=== PATIENT | male | born 1945 | race Caucasian/White ===

== ENCOUNTER 2022-06-01 11:51 | Inpatient (IN) ==
[2022-06-01] MEDS ORDERED: Ondansetron 4 MG/2 ML VIAL IVP PRN (15:02)
[2022-06-01] MEDS ORDERED: Mag Hydrox/Al Hydrox/Simeth 30 ML UDC PO PRN (15:02)
[2022-06-01] MEDS ORDERED: Melatonin 3 MG TABLET PO PRN (15:02)
[2022-06-01] MEDS ORDERED: Acetaminophen 325 MG TABLET PO PRN (15:02)
[2022-06-01] MEDS ORDERED: Naloxone 0.4 MG/ML INJ IVP PRN (15:02)
[2022-06-01] MEDS ORDERED: Gadolinium Contrast Agent (WT Based) IV PRN (15:10)
[2022-06-01] MEDS ORDERED: 0.9 % Sodium Chloride 1,000 ML IVC SCH (15:15)
[2022-06-01] MEDS ORDERED: 0.9 % Sodium Chloride 1,000 ML ONE (17:04)
[2022-06-01] MEDS ORDERED: 0.9 % Sodium Chloride Mini Bag 100 ML ONE (23:22)
[2022-06-02 05:55] LABS: Basophils # 0.1 K/mcL (0.0-0.2); Basophils % 0.4 %; Eosinophils # 0.2 K/mcL (0.0-0.6); Eosinophils % 1.7 %; Hematocrit 29.4 % (37.5-50.1); Hemoglobin 9.6 g/dL (12.9-16.9); Immature Granulocytes % 0.8 % (0-4); Lymphocytes # 2.1 K/mcL (0.6-4.6); Lymphocytes % 15.7 %; Mean Corpuscular HGB Conc 32.7 g/dL (31.6-35.5); Mean Corpuscular Hemoglobin 29.7 pg (28.0-33.3); Mean Platelet Volume 9.8 fL (9.4-12.4); Monocytes # 0.9 K/mcL (0.0-1.3); Monocytes % 6.2 %; Neutrophils # 10.2 K/mcL (1.6-8.9); Platelet Count 387 K/mcL (140-400); Red Blood Count 3.23 M/mcL (4.19-5.50); Red Cell Distribution Width 14.5 % (11.5-14.5); Segmented Neutrophils % 75.2 %; White Blood Count 13.6 K/mcL (4.3-11.1)
[2022-06-02 06:08] LABS: INR 1.3; Prothrombin Time 14.5 Seconds (9.4-12.1)
[2022-06-02 06:12] LABS: BUN/Creatinine Ratio 22 (6-26); Blood Urea Nitrogen 19 mg/dL (8-23); Calcium 8.5 mg/dL (8.6-10.3); Carbon Dioxide 29 mEq/L (23-29); Chloride 102 mEq/L (98-107); Glucose 94 mg/dL (70-105); Magnesium 1.9 mg/dL (1.6-2.6); Osmolality,Calculated 284 (280-300); Phosphorous 3.4 mg/dL (2.7-4.5); Potassium 3.9 mEq/L (3.5-5.1); Sodium 136 mEq/L (136-145)
[2022-06-02] MEDS ORDERED: Cefepime HCl 2,000 MG in 0.9 % Sodium Chloride Mini Bag 100 ML IVPB SCH ×2 (08:00→16:00)
[2022-06-02 08:47] LABS: C-Reactive Protein 98 mg/L (Less than 10)
[2022-06-02] MEDS ORDERED: Megestrol Acetate 400 MG/10 ML UDC PO SCH (09:00)
[2022-06-02] MEDS ORDERED: amLODIPine 5 MG TABLET PO SCH (09:00)
[2022-06-02] MEDS ORDERED: BuPROPion XL (24 HR) 150 MG TABLET PO SCH (09:00)
[2022-06-02] MEDS ORDERED: Ondansetron 4 MG/2 ML VIAL IVP PRN ×3 (09:08→10:44)
[2022-06-02] MEDS ORDERED: *HR* FentaNYL (PF) 100 MCG/2 ML VIAL IVP PRN ×2 (09:08→10:44)
[2022-06-02] MEDS ORDERED: *HR* HYDROmorphone PF 0.5 MG/0.5 ML SYRINGE IVP PRN ×2 (09:08→10:44)
[2022-06-02] MEDS ORDERED: *HR* Propofol 200 MG/20 ML VIAL IVP ONE (09:09)
[2022-06-02] MEDS ORDERED: Lidocaine -MPF 2% 5 ML VIAL ONE (09:10)
[2022-06-02] MEDS ORDERED: *HR* FentaNYL (PF) 100 MCG/2 ML VIAL ONE (09:29)
[2022-06-02] MEDS ORDERED: *HR* Succinylcholine 200 MG/10 ML VIAL IVP ONE (09:55)
[2022-06-02] MEDS ORDERED: Ondansetron 4 MG/2 ML VIAL ONE (09:56)
[2022-06-02] MEDS ORDERED: Naloxone 0.4 MG/ML INJ IVP PRN (10:44)
[2022-06-02] MEDS ORDERED: Melatonin 3 MG TABLET PO PRN (10:44)
[2022-06-02] MEDS ORDERED: Mag Hydrox/Al Hydrox/Simeth 30 ML UDC PO PRN (10:44)
[2022-06-02] MEDS ORDERED: Gadolinium Contrast Agent (WT Based) IV PRN (10:44)
[2022-06-02] MEDS ORDERED: 0.9 % Sodium Chloride 1,000 ML IVC SCH (10:44)
[2022-06-02] MEDS ORDERED: Acetaminophen 325 MG TABLET PO PRN (10:44)
[2022-06-02] MEDS ORDERED: DAPTOmycin 600 MG in 0.9 % Sodium Chloride 100 ML IVPB SCH (17:00)
[2022-06-02] MEDS: Sulfamethoxazole/Trimeth DS 1 EACH TABLET PO SCH (21:48)
[2022-06-03 05:35] LABS: Basophils % 0.1 %; Eosinophils # 0.1 K/mcL (0.0-0.6); Eosinophils % 0.5 %; Hematocrit 29.6 % (37.5-50.1); Hemoglobin 9.5 g/dL (12.9-16.9); Immature Granulocytes % 0.8 % (0-4); Lymphocytes # 2.1 K/mcL (0.6-4.6); Lymphocytes % 15.3 %; Mean Corpuscular HGB Conc 32.1 g/dL (31.6-35.5); Mean Corpuscular Hemoglobin 29.5 pg (28.0-33.3); Mean Corpuscular Volume 91.9 fL (83.0-100.0); Monocytes # 0.8 K/mcL (0.0-1.3); Neutrophils # 10.5 K/mcL (1.6-8.9); Platelet Count 417 K/mcL (140-400); Red Blood Count 3.22 M/mcL (4.19-5.50); Red Cell Distribution Width 14.7 % (11.5-14.5); Segmented Neutrophils % 77.3 %; White Blood Count 13.6 K/mcL (4.3-11.1)
[2022-06-03] MEDS ORDERED: *HR* Heparin 5,000 UNIT/ML VIAL SQ SCH (06:00)
[2022-06-03 06:02] LABS: BUN/Creatinine Ratio 27 (6-26); Blood Urea Nitrogen 21 mg/dL (8-23); Calcium 8.3 mg/dL (8.6-10.3); Carbon Dioxide 30 mEq/L (23-29); Chloride 103 mEq/L (98-107); Glucose 95 mg/dL (70-105); Magnesium 2.1 mg/dL (1.6-2.6); Osmolality,Calculated 289 (280-300); Phosphorous 3.8 mg/dL (2.7-4.5); Potassium 4.4 mEq/L (3.5-5.1); Sodium 138 mEq/L (136-145)
[2022-06-03] MEDS: *HR* Heparin 5,000 UNIT/ML VIAL SQ SCH ×2 (06:08→17:33)
[2022-06-03] MEDS: Megestrol Acetate 400 MG/10 ML UDC PO SCH (10:37)
[2022-06-03] MEDS: BuPROPion XL (24 HR) 150 MG TABLET PO SCH (10:38)
[2022-06-03] MEDS: Sulfamethoxazole/Trimeth DS 1 EACH TABLET PO SCH (10:38)
[2022-06-03] MEDS: amLODIPine 5 MG TABLET PO SCH (10:38)
[2022-06-03] MEDS ORDERED: Ampicillin/Sulbactam 3,000 MG in 0.9 % Sodium Chloride Mini Bag 100 ML IVPB SCH (12:00)
[2022-06-03] MEDS: DAPTOmycin 600 MG in 0.9 % Sodium Chloride 100 ML IVPB SCH (13:53)
[2022-06-03] MEDS: SULFAMETHOXAZOLE IVPB SCH (21:41)
[2022-06-03] MEDS: TRIMETH IVPB SCH (21:41)
[2022-06-03] MEDS: D5 IVPB SCH (21:41)
[2022-06-03] MEDS: WATER IVPB SCH (21:41)
[2022-06-04] MEDS: *HR* Heparin 5,000 UNIT/ML VIAL SQ SCH ×2 (06:02→17:17)
[2022-06-04] MEDS: TRIMETH IVPB SCH ×3 (06:03→17:52)
[2022-06-04] MEDS: D5 IVPB SCH ×3 (06:03→17:52)
[2022-06-04] MEDS: WATER IVPB SCH ×3 (06:03→17:52)
[2022-06-04] MEDS: SULFAMETHOXAZOLE IVPB SCH ×3 (06:03→17:52)
[2022-06-04 06:13] LABS: Basophils # 0.1 K/mcL (0.0-0.2); Basophils % 0.5 %; Eosinophils # 0.1 K/mcL (0.0-0.6); Eosinophils % 1.3 %; Hematocrit 31.3 % (37.5-50.1); Hemoglobin 10.1 g/dL (12.9-16.9); Lymphocytes # 2.5 K/mcL (0.6-4.6); Lymphocytes % 22.9 %; Mean Corpuscular HGB Conc 32.3 g/dL (31.6-35.5); Mean Corpuscular Hemoglobin 29.9 pg (28.0-33.3); Mean Corpuscular Volume 92.6 fL (83.0-100.0); Mean Platelet Volume 9.3 fL (9.4-12.4); Monocytes # 0.8 K/mcL (0.0-1.3); Monocytes % 6.8 %; Neutrophils # 7.4 K/mcL (1.6-8.9); Platelet Count 423 K/mcL (140-400); Red Blood Count 3.38 M/mcL (4.19-5.50); Red Cell Distribution Width 14.8 % (11.5-14.5); Segmented Neutrophils % 67.5 %
[2022-06-04 06:34] LABS: BUN/Creatinine Ratio 21 (6-26); Blood Urea Nitrogen 17 mg/dL (8-23); Calcium 8.3 mg/dL (8.6-10.3); Carbon Dioxide 28 mEq/L (23-29); Chloride 101 mEq/L (98-107); Glucose 87 mg/dL (70-105); Osmolality,Calculated 279 (280-300); Potassium 3.9 mEq/L (3.5-5.1); Sodium 134 mEq/L (136-145)
[2022-06-04] MEDS: amLODIPine 5 MG TABLET PO SCH (10:23)
[2022-06-04] MEDS: Megestrol Acetate 400 MG/10 ML UDC PO SCH (10:23)
[2022-06-04] MEDS: BuPROPion XL (24 HR) 150 MG TABLET PO SCH (11:42)
[2022-06-04] MEDS: DAPTOmycin 600 MG in 0.9 % Sodium Chloride 100 ML IVPB SCH (13:18)
[2022-06-05] MEDS: D5 IVPB SCH ×3 (02:29→19:54)
[2022-06-05] MEDS: SULFAMETHOXAZOLE IVPB SCH ×3 (02:29→19:54)
[2022-06-05] MEDS: WATER IVPB SCH ×3 (02:29→19:54)
[2022-06-05] MEDS: TRIMETH IVPB SCH ×3 (02:29→19:54)
[2022-06-05] MEDS: *HR* Heparin 5,000 UNIT/ML VIAL SQ SCH ×3 (06:20→17:23)
[2022-06-05 08:16] LABS: Basophils # 0.1 K/mcL (0.0-0.2); Basophils % 0.8 %; Eosinophils # 0.2 K/mcL (0.0-0.6); Eosinophils % 1.3 %; Immature Granulocytes % 0.7 % (0-4); Lymphocytes # 2.2 K/mcL (0.6-4.6); Lymphocytes % 17.6 %; Mean Corpuscular HGB Conc 32.5 g/dL (31.6-35.5); Mean Corpuscular Volume 92.3 fL (83.0-100.0); Mean Platelet Volume 9.2 fL (9.4-12.4); Monocytes # 0.8 K/mcL (0.0-1.3); Monocytes % 6.8 %; Neutrophils # 8.9 K/mcL (1.6-8.9); Platelet Count 514 K/mcL (140-400); Red Cell Distribution Width 14.6 % (11.5-14.5); Segmented Neutrophils % 72.8 %; White Blood Count 12.3 K/mcL (4.3-11.1)
[2022-06-05 08:20] LABS: Hemoglobin 11.7 g/dL (12.9-16.9)
[2022-06-05 08:32] LABS: Calcium 8.9 mg/dL (8.6-10.3); Potassium 4.3 mEq/L (3.5-5.1)
[2022-06-05] MEDS: BuPROPion XL (24 HR) 150 MG TABLET PO SCH (09:54)
[2022-06-05] MEDS: Megestrol Acetate 400 MG/10 ML UDC PO SCH (09:54)
[2022-06-05] MEDS: amLODIPine 5 MG TABLET PO SCH (09:54)
[2022-06-05] MEDS: DAPTOmycin 600 MG in 0.9 % Sodium Chloride 100 ML IVPB SCH (14:43)
[2022-06-05] MEDS ORDERED: D5 IVPB SCH (19:00)
[2022-06-05] MEDS ORDERED: SULFAMETHOXAZOLE IVPB SCH (19:00)
[2022-06-05] MEDS ORDERED: WATER IVPB SCH (19:00)
[2022-06-05] MEDS ORDERED: TRIMETH IVPB SCH (19:00)
[2022-06-06] MEDS: D5 IVPB SCH ×3 (01:46→18:11)
[2022-06-06] MEDS: TRIMETH IVPB SCH ×3 (01:46→18:11)
[2022-06-06] MEDS: WATER IVPB SCH ×3 (01:46→18:11)
[2022-06-06] MEDS: SULFAMETHOXAZOLE IVPB SCH ×3 (01:46→18:11)
[2022-06-06] MEDS: *HR* Heparin 5,000 UNIT/ML VIAL SQ SCH ×2 (06:19→18:34)
[2022-06-06] MEDS ORDERED: Ethanol\\Acetic Acid\\Na Ace\\Ben 1,000 ML IRRIG.SOLN IR ONE (07:28)
[2022-06-06] MEDS ORDERED: EPHEDrine 50 MG/ML VIAL ONE (07:35)
[2022-06-06] MEDS ORDERED: Ondansetron 4 MG/2 ML VIAL ONE (07:40)
[2022-06-06] MEDS ORDERED: Lidocaine HCL 4 ML Topical Solution (Laryng-O-Jet Kit Sterile Pak) TP ONE (07:40)
[2022-06-06] MEDS ORDERED: Lidocaine -MPF 2% 5 ML VIAL ONE (07:40)
[2022-06-06] MEDS ORDERED: *HR* Succinylcholine 200 MG/10 ML VIAL IVP ONE (07:40)
[2022-06-06] MEDS ORDERED: *HR* FentaNYL (PF) 100 MCG/2 ML VIAL ONE (07:40)
[2022-06-06] MEDS ORDERED: *HR* Rocuronium Bromide 50 MG/5 ML VIAL ONE (07:40)
[2022-06-06] MEDS ORDERED: *HR* FentaNYL (PF) 100 MCG/2 ML VIAL IVP PRN (07:52)
[2022-06-06] MEDS ORDERED: Ondansetron 4 MG/2 ML VIAL IVP PRN ×3 (07:52→10:05)
[2022-06-06] MEDS ORDERED: *HR* HYDROmorphone PF 0.5 MG/0.5 ML SYRINGE IVP PRN (07:52)
[2022-06-06] MEDS ORDERED: CeFAZolin Syr 2,000MG/20 ML 2,000 MG/20 ML SYRINGE IVPB ONE (08:05)
[2022-06-06] MEDS ORDERED: Ringers Solution, Lactated 1,000 ML IVC SCH (08:15)
[2022-06-06] MEDS ORDERED: *HR* HYDROMORPHONE 2 MG/ML VIAL ONE (09:01)
[2022-06-06] MEDS ORDERED: Povidone-Iodine 45 ML, Sodium Chloride IRRigation 1,000 ML IR ONE ×2 (10:00→10:05)
[2022-06-06] MEDS ORDERED: Mag Hydrox/Al Hydrox/Simeth 30 ML UDC PO PRN (10:05)
[2022-06-06] MEDS ORDERED: Naloxone 0.4 MG/ML INJ IVP PRN (10:05)
[2022-06-06] MEDS ORDERED: Melatonin 3 MG TABLET PO PRN (10:05)
[2022-06-06] MEDS: Megestrol Acetate 400 MG/10 ML UDC PO SCH (10:16)
[2022-06-06] MEDS: amLODIPine 5 MG TABLET PO SCH (10:16)
[2022-06-06] MEDS: BuPROPion XL (24 HR) 150 MG TABLET PO SCH (10:16)
[2022-06-06 11:27] LABS: Basophils # 0.2 K/mcL (0.0-0.2); Basophils % 0.8 %; Eosinophils % 0.7 %; Hematocrit 37.5 % (37.5-50.1); Hemoglobin 12.1 g/dL (12.9-16.9); Immature Granulocytes % 0.9 % (0-4); Lymphocytes # 1.3 K/mcL (0.6-4.6); Lymphocytes % 6.2 %; Mean Corpuscular HGB Conc 32.3 g/dL (31.6-35.5); Mean Corpuscular Hemoglobin 30.2 pg (28.0-33.3); Mean Corpuscular Volume 93.5 fL (83.0-100.0); Mean Platelet Volume 10.3 fL (9.4-12.4); Monocytes # 0.6 K/mcL (0.0-1.3); Platelet Count 422 K/mcL (140-400); Red Blood Count 4.01 M/mcL (4.19-5.50); Red Cell Distribution Width 14.6 % (11.5-14.5); Segmented Neutrophils % 88.4 %
[2022-06-06 11:32] LABS: Eosinophils # 0.2 K/mcL (0.0-0.6); Neutrophils # 18.7 K/mcL (1.6-8.9); White Blood Count 21.1 K/mcL (4.3-11.1)
[2022-06-06 11:46] LABS: Calcium 8.7 mg/dL (8.6-10.3); Potassium 4.9 mEq/L (3.5-5.1)
[2022-06-06] MEDS: Acetaminophen 325 MG TABLET PO SCH ×3 (12:45→23:30)
[2022-06-06] MEDS: DAPTOmycin 600 MG in 0.9 % Sodium Chloride 100 ML IVPB SCH (12:46)
[2022-06-06] MEDS ORDERED: Albuterol 2.5 MG/3 ML NEBULIZER IH PRN (14:38)
[2022-06-06] MEDS: Morphine Sulfate 2 MG/ML SYRINGE IVP PRN (14:58)
[2022-06-07] MEDS: SULFAMETHOXAZOLE IVPB SCH ×3 (03:22→18:20)
[2022-06-07] MEDS: D5 IVPB SCH ×3 (03:22→18:20)
[2022-06-07] MEDS: TRIMETH IVPB SCH ×3 (03:22→18:20)
[2022-06-07] MEDS: WATER IVPB SCH ×3 (03:22→18:20)
[2022-06-07] MEDS: *HR* Heparin 5,000 UNIT/ML VIAL SQ SCH ×2 (05:01→18:10)
[2022-06-07] MEDS: Acetaminophen 325 MG TABLET PO SCH ×4 (05:03→23:19)
[2022-06-07] MEDS: Megestrol Acetate 400 MG/10 ML UDC PO SCH (08:51)
[2022-06-07] MEDS: amLODIPine 5 MG TABLET PO SCH (08:52)
[2022-06-07] MEDS: BuPROPion XL (24 HR) 150 MG TABLET PO SCH (08:52)
[2022-06-07] MEDS: DAPTOmycin 600 MG in 0.9 % Sodium Chloride 100 ML IVPB SCH (12:11)
[2022-06-07 15:50] LABS: Basophils # 0.1 K/mcL (0.0-0.2); Basophils % 0.6 %; Eosinophils # 0.2 K/mcL (0.0-0.6); Eosinophils % 1.1 %; Hematocrit 33.2 % (37.5-50.1); Hemoglobin 10.8 g/dL (12.9-16.9); Immature Granulocytes % 0.4 % (0-4); Lymphocytes # 1.3 K/mcL (0.6-4.6); Lymphocytes % 9.6 %; Mean Corpuscular HGB Conc 32.5 g/dL (31.6-35.5); Mean Corpuscular Hemoglobin 29.6 pg (28.0-33.3); Mean Platelet Volume 9.1 fL (9.4-12.4); Monocytes # 0.8 K/mcL (0.0-1.3); Monocytes % 5.6 %; Platelet Count 500 K/mcL (140-400); Red Blood Count 3.65 M/mcL (4.19-5.50); Red Cell Distribution Width 14.6 % (11.5-14.5); Segmented Neutrophils % 82.7 %; White Blood Count 13.3 K/mcL (4.3-11.1)
[2022-06-07 16:02] LABS: Calcium 8.4 mg/dL (8.6-10.3); Potassium 4.3 mEq/L (3.5-5.1)
[2022-06-08] MEDS: SULFAMETHOXAZOLE IVPB SCH ×3 (02:00→18:27)
[2022-06-08] MEDS: WATER IVPB SCH ×3 (02:00→18:27)
[2022-06-08] MEDS: TRIMETH IVPB SCH ×3 (02:00→18:27)
[2022-06-08] MEDS: D5 IVPB SCH ×3 (02:00→18:27)
[2022-06-08] MEDS: Acetaminophen 325 MG TABLET PO SCH ×3 (05:56→17:29)
[2022-06-08] MEDS: *HR* Heparin 5,000 UNIT/ML VIAL SQ SCH ×2 (05:56→17:28)
[2022-06-08] MEDS: Megestrol Acetate 400 MG/10 ML UDC PO SCH (10:39)
[2022-06-08] MEDS: BuPROPion XL (24 HR) 150 MG TABLET PO SCH (10:40)
[2022-06-08] MEDS: amLODIPine 5 MG TABLET PO SCH (10:40)
[2022-06-08] MEDS: DAPTOmycin 600 MG in 0.9 % Sodium Chloride 100 ML IVPB SCH (15:57)
[2022-06-08] MEDS: Morphine Sulfate 2 MG/ML SYRINGE IVP PRN (16:11)
[2022-06-09] MEDS: Acetaminophen 325 MG TABLET PO SCH ×4 (01:00→19:45)
[2022-06-09] MEDS: SULFAMETHOXAZOLE IVPB SCH ×2 (02:33→11:50)
[2022-06-09] MEDS: D5 IVPB SCH ×2 (02:33→11:50)
[2022-06-09] MEDS: TRIMETH IVPB SCH ×2 (02:33→11:50)
[2022-06-09] MEDS: WATER IVPB SCH ×2 (02:33→11:50)
[2022-06-09 05:22] LABS: Basophils # 0.1 K/mcL (0.0-0.2); Basophils % 0.7 %; Eosinophils # 0.2 K/mcL (0.0-0.6); Eosinophils % 2.4 %; Hematocrit 31.7 % (37.5-50.1); Hemoglobin 10.2 g/dL (12.9-16.9); Immature Granulocytes % 0.7 % (0-4); Lymphocytes # 0.7 K/mcL (0.6-4.6); Lymphocytes % 10.2 %; Mean Corpuscular HGB Conc 32.2 g/dL (31.6-35.5); Mean Corpuscular Hemoglobin 29.5 pg (28.0-33.3); Mean Corpuscular Volume 91.6 fL (83.0-100.0); Mean Platelet Volume 9.4 fL (9.4-12.4); Monocytes # 0.7 K/mcL (0.0-1.3); Monocytes % 9.7 %; Neutrophils # 5.4 K/mcL (1.6-8.9); Platelet Count 411 K/mcL (140-400); Red Blood Count 3.46 M/mcL (4.19-5.50); Red Cell Distribution Width 14.9 % (11.5-14.5); Segmented Neutrophils % 76.3 %
[2022-06-09 05:35] LABS: Calcium 8.2 mg/dL (8.6-10.3)
[2022-06-09] MEDS: *HR* Heparin 5,000 UNIT/ML VIAL SQ SCH ×2 (05:49→18:55)
[2022-06-09] MEDS: BuPROPion XL (24 HR) 150 MG TABLET PO SCH (08:22)
[2022-06-09] MEDS: amLODIPine 5 MG TABLET PO SCH (08:22)
[2022-06-09] MEDS: Megestrol Acetate 400 MG/10 ML UDC PO SCH (08:22)
[2022-06-09] MEDS ORDERED: Lidocaine -MPF 1% 5 ML AMPUL INFILT ONE (12:31)
[2022-06-09] MEDS: Morphine Sulfate 2 MG/ML SYRINGE IVP PRN (16:40)
[2022-06-10] MEDS: SULFAMETHOXAZOLE IVPB SCH ×3 (00:09→17:38)
[2022-06-10] MEDS: TRIMETH IVPB SCH ×3 (00:09→17:38)
[2022-06-10] MEDS: D5 IVPB SCH ×3 (00:09→17:38)
[2022-06-10] MEDS: WATER IVPB SCH ×3 (00:09→17:38)
[2022-06-10] MEDS: Acetaminophen 325 MG TABLET PO SCH ×4 (00:19→16:51)
[2022-06-10 04:59] LABS: Basophils % 0.6 %; Eosinophils # 0.3 K/mcL (0.0-0.6); Eosinophils % 4.3 %; Hemoglobin 10.3 g/dL (12.9-16.9); Immature Granulocytes % 0.4 % (0-4); Lymphocytes # 1.2 K/mcL (0.6-4.6); Lymphocytes % 17.3 %; Mean Corpuscular HGB Conc 32.2 g/dL (31.6-35.5); Mean Corpuscular Hemoglobin 29.3 pg (28.0-33.3); Mean Corpuscular Volume 90.9 fL (83.0-100.0); Mean Platelet Volume 9.4 fL (9.4-12.4); Monocytes # 0.7 K/mcL (0.0-1.3); Monocytes % 10.2 %; Neutrophils # 4.7 K/mcL (1.6-8.9); Platelet Count 402 K/mcL (140-400); Red Blood Count 3.52 M/mcL (4.19-5.50); Red Cell Distribution Width 14.8 % (11.5-14.5); Segmented Neutrophils % 67.2 %
[2022-06-10 05:20] LABS: Calcium 7.6 mg/dL (8.6-10.3); Potassium 4.6 mEq/L (3.5-5.1)
[2022-06-10] MEDS: *HR* Heparin 5,000 UNIT/ML VIAL SQ SCH ×2 (06:42→16:50)
[2022-06-10] MEDS: Megestrol Acetate 400 MG/10 ML UDC PO SCH (09:13)
[2022-06-10] MEDS: amLODIPine 5 MG TABLET PO SCH (09:13)
[2022-06-10] MEDS: BuPROPion XL (24 HR) 150 MG TABLET PO SCH (09:14)
[2022-06-10] MEDS: Morphine Sulfate 2 MG/ML SYRINGE IVP PRN (18:42)
[2022-06-11] MEDS: Acetaminophen 325 MG TABLET PO SCH ×4 (00:20→17:59)
[2022-06-11] MEDS: WATER IVPB SCH ×2 (00:57→10:31)
[2022-06-11] MEDS: D5 IVPB SCH ×2 (00:57→10:31)
[2022-06-11] MEDS: TRIMETH IVPB SCH ×2 (00:57→10:31)
[2022-06-11] MEDS: SULFAMETHOXAZOLE IVPB SCH ×2 (00:57→10:31)
[2022-06-11] MEDS: *HR* Heparin 5,000 UNIT/ML VIAL SQ SCH ×2 (06:18→17:59)
[2022-06-11 07:02] LABS: Basophils # 0.1 K/mcL (0.0-0.2); Basophils % 0.7 %; Eosinophils # 0.2 K/mcL (0.0-0.6); Eosinophils % 2.3 %; Hematocrit 34.8 % (37.5-50.1); Hemoglobin 11.5 g/dL (12.9-16.9); Immature Granulocytes % 0.4 % (0-4); Lymphocytes # 1.5 K/mcL (0.6-4.6); Lymphocytes % 17.5 %; Mean Corpuscular Hemoglobin 29.7 pg (28.0-33.3); Mean Corpuscular Volume 89.9 fL (83.0-100.0); Mean Platelet Volume 9.6 fL (9.4-12.4); Monocytes # 0.6 K/mcL (0.0-1.3); Monocytes % 7.3 %; Neutrophils # 6.1 K/mcL (1.6-8.9); Platelet Count 388 K/mcL (140-400); Red Blood Count 3.87 M/mcL (4.19-5.50); Red Cell Distribution Width 14.7 % (11.5-14.5); Segmented Neutrophils % 71.8 %; White Blood Count 8.4 K/mcL (4.3-11.1)
[2022-06-11 07:47] LABS: Calcium 8.5 mg/dL (8.6-10.3); Potassium 4.7 mEq/L (3.5-5.1)
[2022-06-11] MEDS: amLODIPine 5 MG TABLET PO SCH ×2 (09:08→09:23)
[2022-06-11] MEDS: BuPROPion XL (24 HR) 150 MG TABLET PO SCH ×2 (09:08→09:23)
[2022-06-11] MEDS: Megestrol Acetate 400 MG/10 ML UDC PO SCH (10:05)
[2022-06-11] MEDS: Morphine Sulfate 2 MG/ML SYRINGE IVP PRN (14:58)
[2022-06-12] MEDS: Acetaminophen 325 MG TABLET PO SCH ×4 (00:11→18:06)
[2022-06-12] MEDS: *HR* Heparin 5,000 UNIT/ML VIAL SQ SCH ×2 (06:19→18:06)
[2022-06-12] MEDS: Megestrol Acetate 400 MG/10 ML UDC PO SCH (07:32)
[2022-06-12] MEDS: BuPROPion XL (24 HR) 150 MG TABLET PO SCH (07:33)
[2022-06-12] MEDS: amLODIPine 5 MG TABLET PO SCH (07:33)
[2022-06-12 09:50] LABS: Basophils # 0.1 K/mcL (0.0-0.2); Basophils % 0.8 %; Eosinophils # 0.4 K/mcL (0.0-0.6); Eosinophils % 6.6 %; Hematocrit 34.3 % (37.5-50.1); Hemoglobin 11.4 g/dL (12.9-16.9); Immature Granulocytes % 0.6 % (0-4); Lymphocytes # 1.6 K/mcL (0.6-4.6); Lymphocytes % 24.5 %; Mean Corpuscular HGB Conc 33.2 g/dL (31.6-35.5); Mean Corpuscular Hemoglobin 29.4 pg (28.0-33.3); Mean Corpuscular Volume 88.4 fL (83.0-100.0); Mean Platelet Volume 9.6 fL (9.4-12.4); Monocytes # 0.6 K/mcL (0.0-1.3); Monocytes % 9.1 %; Neutrophils # 3.8 K/mcL (1.6-8.9); Platelet Count 348 K/mcL (140-400); Red Blood Count 3.88 M/mcL (4.19-5.50); Red Cell Distribution Width 14.6 % (11.5-14.5); Segmented Neutrophils % 58.4 %; White Blood Count 6.5 K/mcL (4.3-11.1)
[2022-06-12 09:55] LABS: Calcium 8.3 mg/dL (8.6-10.3); Potassium 4.2 mEq/L (3.5-5.1)
[2022-06-12] MEDS: Morphine Sulfate 2 MG/ML SYRINGE IVP PRN (20:47)
[2022-06-13] MEDS: Acetaminophen 325 MG TABLET PO SCH ×4 (00:51→18:40)
[2022-06-13 05:11] LABS: Basophils # 0.1 K/mcL (0.0-0.2); Basophils % 0.6 %; Eosinophils # 0.5 K/mcL (0.0-0.6); Hematocrit 30.6 % (37.5-50.1); Hemoglobin 10.2 g/dL (12.9-16.9); Immature Granulocytes % 0.5 % (0-4); Lymphocytes # 2.5 K/mcL (0.6-4.6); Lymphocytes % 32.3 %; Mean Corpuscular HGB Conc 33.3 g/dL (31.6-35.5); Mean Corpuscular Hemoglobin 29.7 pg (28.0-33.3); Mean Corpuscular Volume 89.2 fL (83.0-100.0); Mean Platelet Volume 9.3 fL (9.4-12.4); Monocytes # 0.6 K/mcL (0.0-1.3); Monocytes % 7.9 %; Neutrophils # 4.2 K/mcL (1.6-8.9); Platelet Count 341 K/mcL (140-400); Red Blood Count 3.43 M/mcL (4.19-5.50); Red Cell Distribution Width 14.7 % (11.5-14.5); Segmented Neutrophils % 52.7 %; White Blood Count 7.9 K/mcL (4.3-11.1)
[2022-06-13 05:29] LABS: Calcium 8.1 mg/dL (8.6-10.3); Potassium 3.8 mEq/L (3.5-5.1)
[2022-06-13] MEDS: *HR* Heparin 5,000 UNIT/ML VIAL SQ SCH ×2 (06:37→16:45)
[2022-06-13] MEDS: Vancomycin 500 MG in 0.9 % Sodium Chloride Mini Bag 100 ML IVPB SCH ×2 (06:42→19:45)
[2022-06-13] MEDS: Ringers Solution, Lactated 1,000 ML IVC SCH ×2 (10:40→19:45)
[2022-06-13] MEDS: BuPROPion XL (24 HR) 150 MG TABLET PO SCH (11:03)
[2022-06-13] MEDS: Megestrol Acetate 400 MG/10 ML UDC PO SCH (11:03)
[2022-06-13] MEDS: amLODIPine 5 MG TABLET PO SCH (11:03)
[2022-06-14] MEDS: Acetaminophen 325 MG TABLET PO SCH ×4 (00:08→17:41)
[2022-06-14] MEDS: *HR* Heparin 5,000 UNIT/ML VIAL SQ SCH ×2 (06:04→16:13)
[2022-06-14] MEDS: Vancomycin 500 MG in 0.9 % Sodium Chloride Mini Bag 100 ML IVPB SCH ×2 (06:08→17:42)
[2022-06-14] MEDS: Megestrol Acetate 400 MG/10 ML UDC PO SCH (11:29)
[2022-06-14] MEDS: BuPROPion XL (24 HR) 150 MG TABLET PO SCH (11:29)
[2022-06-14] MEDS: amLODIPine 5 MG TABLET PO SCH (11:29)
[2022-06-14 16:45] LABS: BUN/Creatinine Ratio 49 (6-26); Blood Urea Nitrogen 32 mg/dL (8-23); Vancomycin,Trough 15 mcg/mL (5-10)
[2022-06-14] MEDS: Morphine Sulfate 2 MG/ML SYRINGE IVP PRN (20:07)
[2022-06-15] MEDS: Acetaminophen 325 MG TABLET PO SCH ×4 (01:00→18:07)
[2022-06-15 04:05] LABS: Basophils # 0.1 K/mcL (0.0-0.2); Basophils % 0.8 %; Eosinophils # 0.3 K/mcL (0.0-0.6); Eosinophils % 3.3 %; Hematocrit 30.8 % (37.5-50.1); Hemoglobin 9.8 g/dL (12.9-16.9); Immature Granulocytes % 0.3 % (0-4); Lymphocytes # 2.6 K/mcL (0.6-4.6); Lymphocytes % 29.3 %; Mean Corpuscular HGB Conc 31.8 g/dL (31.6-35.5); Mean Corpuscular Hemoglobin 29.1 pg (28.0-33.3); Mean Corpuscular Volume 91.4 fL (83.0-100.0); Mean Platelet Volume 9.4 fL (9.4-12.4); Monocytes # 0.8 K/mcL (0.0-1.3); Monocytes % 8.7 %; Neutrophils # 5.2 K/mcL (1.6-8.9); Platelet Count 330 K/mcL (140-400); Red Blood Count 3.37 M/mcL (4.19-5.50); Red Cell Distribution Width 14.8 % (11.5-14.5); Segmented Neutrophils % 57.6 %
[2022-06-15 04:23] LABS: BUN/Creatinine Ratio 48 (6-26); Blood Urea Nitrogen 29 mg/dL (8-23); Carbon Dioxide 24 mEq/L (23-29); Chloride 107 mEq/L (98-107); Glucose 97 mg/dL (70-105); Osmolality,Calculated 288 (280-300); Potassium 3.4 mEq/L (3.5-5.1); Sodium 136 mEq/L (136-145)
[2022-06-15] MEDS: *HR* Heparin 5,000 UNIT/ML VIAL SQ SCH ×2 (06:20→18:12)
[2022-06-15] MEDS: Vancomycin 750 MG in 0.9 % Sodium Chloride Mini Bag 100 ML IVPB SCH ×2 (06:34→18:06)
[2022-06-15] MEDS: BuPROPion XL (24 HR) 150 MG TABLET PO SCH (09:38)
[2022-06-15] MEDS: Megestrol Acetate 400 MG/10 ML UDC PO SCH (09:38)
[2022-06-15] MEDS: Morphine Sulfate 2 MG/ML SYRINGE IVP PRN (14:19)
[2022-06-16] MEDS: Acetaminophen 325 MG TABLET PO SCH ×5 (00:06→23:56)
[2022-06-16] MEDS: Vancomycin 750 MG in 0.9 % Sodium Chloride Mini Bag 100 ML IVPB SCH ×2 (06:30→18:24)
[2022-06-16] MEDS: *HR* Heparin 5,000 UNIT/ML VIAL SQ SCH ×2 (06:31→18:14)
[2022-06-16 07:24] LABS: BUN/Creatinine Ratio 48 (6-26); Blood Urea Nitrogen 28 mg/dL (8-23); Calcium 8.2 mg/dL (8.6-10.3); Carbon Dioxide 26 mEq/L (23-29); Chloride 107 mEq/L (98-107); Glucose 98 mg/dL (70-105); Osmolality,Calculated 291 (280-300); Potassium 3.6 mEq/L (3.5-5.1); Sodium 138 mEq/L (136-145)
[2022-06-16] MEDS: BuPROPion XL (24 HR) 150 MG TABLET PO SCH (08:21)
[2022-06-16] MEDS: Megestrol Acetate 400 MG/10 ML UDC PO SCH (08:21)
[2022-06-16] MEDS: Morphine Sulfate 2 MG/ML SYRINGE IVP PRN (18:14)
[2022-06-17 05:19] LABS: Basophils # 0.1 K/mcL (0.0-0.2); Basophils % 1.3 %; Eosinophils # 0.1 K/mcL (0.0-0.6); Eosinophils % 1.7 %; Hematocrit 30.5 % (37.5-50.1); Hemoglobin 9.7 g/dL (12.9-16.9); Immature Granulocytes % 0.3 % (0-4); Lymphocytes # 2.1 K/mcL (0.6-4.6); Lymphocytes % 26.8 %; Mean Corpuscular HGB Conc 31.8 g/dL (31.6-35.5); Mean Corpuscular Hemoglobin 29.2 pg (28.0-33.3); Mean Corpuscular Volume 91.9 fL (83.0-100.0); Mean Platelet Volume 9.6 fL (9.4-12.4); Monocytes # 0.8 K/mcL (0.0-1.3); Monocytes % 10.8 %; Neutrophils # 4.6 K/mcL (1.6-8.9); Platelet Count 307 K/mcL (140-400); Red Blood Count 3.32 M/mcL (4.19-5.50); Red Cell Distribution Width 14.8 % (11.5-14.5); Segmented Neutrophils % 59.1 %; White Blood Count 7.8 K/mcL (4.3-11.1)
[2022-06-17 05:37] LABS: BUN/Creatinine Ratio 44 (6-26); Blood Urea Nitrogen 25 mg/dL (8-23); Calcium 8.2 mg/dL (8.6-10.3); Carbon Dioxide 25 mEq/L (23-29); Chloride 111 mEq/L (98-107); Glucose 95 mg/dL (70-105); Osmolality,Calculated 284 (280-300); Potassium 3.5 mEq/L (3.5-5.1); Sodium 135 mEq/L (136-145); Vancomycin,Trough 19 mcg/mL (5-10)
[2022-06-17] MEDS: *HR* Heparin 5,000 UNIT/ML VIAL SQ SCH ×2 (06:15→16:59)
[2022-06-17] MEDS: Vancomycin 500 MG in 0.9 % Sodium Chloride Mini Bag 100 ML IVPB SCH ×2 (06:16→18:16)
[2022-06-17] MEDS: Acetaminophen 325 MG TABLET PO SCH ×3 (06:16→16:58)
[2022-06-17] MEDS: Megestrol Acetate 400 MG/10 ML UDC PO SCH (08:16)
[2022-06-17] MEDS: BuPROPion XL (24 HR) 150 MG TABLET PO SCH (08:17)
[2022-06-18] MEDS: Acetaminophen 325 MG TABLET PO SCH ×4 (01:05→20:03)
[2022-06-18] MEDS: Vancomycin 500 MG in 0.9 % Sodium Chloride Mini Bag 100 ML IVPB SCH ×2 (05:49→20:03)
[2022-06-18] MEDS: *HR* Heparin 5,000 UNIT/ML VIAL SQ SCH ×2 (05:49→20:03)
[2022-06-18 06:17] LABS: Basophils # 0.1 K/mcL (0.0-0.2); Basophils % 1.7 %; Eosinophils # 0.1 K/mcL (0.0-0.6); Eosinophils % 1.3 %; Hematocrit 30.1 % (37.5-50.1); Hemoglobin 9.7 g/dL (12.9-16.9); Immature Granulocytes % 0.3 % (0-4); Lymphocytes # 2.2 K/mcL (0.6-4.6); Lymphocytes % 30.6 %; Mean Corpuscular HGB Conc 32.2 g/dL (31.6-35.5); Mean Corpuscular Hemoglobin 29.8 pg (28.0-33.3); Mean Corpuscular Volume 92.3 fL (83.0-100.0); Mean Platelet Volume 9.6 fL (9.4-12.4); Monocytes # 0.7 K/mcL (0.0-1.3); Neutrophils # 3.9 K/mcL (1.6-8.9); Platelet Count 333 K/mcL (140-400); Red Blood Count 3.26 M/mcL (4.19-5.50); Red Cell Distribution Width 14.6 % (11.5-14.5); Segmented Neutrophils % 56.1 %
[2022-06-18 06:31] LABS: BUN/Creatinine Ratio 34 (6-26); Blood Urea Nitrogen 20 mg/dL (8-23); Calcium 7.8 mg/dL (8.6-10.3); Carbon Dioxide 26 mEq/L (23-29); Chloride 109 mEq/L (98-107); Glucose 88 mg/dL (70-105); Osmolality,Calculated 290 (280-300); Potassium 3.2 mEq/L (3.5-5.1); Sodium 139 mEq/L (136-145)
[2022-06-18] MEDS: Megestrol Acetate 400 MG/10 ML UDC PO SCH (13:40)
[2022-06-18] MEDS: BuPROPion XL (24 HR) 150 MG TABLET PO SCH (13:40)
[2022-06-18 19:42] VITALS: BP 139/89; PULSE 70; TEMP 98; O2SAT 96
== END 2022-06-18 23:30 | disposition short-term general hospital (02) | DRG 854 ==
LOC: 4WAOSI → SUATTDRO 06-02 02:51
PROVIDERS: ADMIT Internal Medicine; ATTEND Student in an Organized Health Care Education/Training Program